=== PATIENT | female | born 1980 | race Hispanic/Latino ===

== ENCOUNTER 2020-07-26 10:38 | Inpatient (IN) | payer SELFPAY ==
[~2020-07-26 10:38] MED LIST: Iopamidol 370 76% 100 ML VIAL ONE
[2020-07-26 11:11] LABS: #Eosinphils 0.1 thou/uL (0.0-0.7); #Lymphocytes 1.4 thou/uL (1.20-3.40); #Monocytes 0.8 thou/uL (0.11-0.59); #Neutrophils 9.4 thou/uL (1.40-6.50); %Basophils 0.3 % (0.0-1.0); %Lymphocytes 12.1 % (21.0-51.0); %Monocytes 6.8 % (0.0-10.0); %Neutrophils 79.8 % (42.0-75.0); Hemoglobin 14.3 g/dL (12.0-16.0); Mean Corpuscular HGB CONC 33.7 g/dL (32.0-36.0); Mean Corpuscular Hemoglobin 33.1 pg (27.0-31.0); Mean Platelet Volume 6.8 fL (7.4-10.4); Platelet Count 330 thou/uL (130-400); RBC Distribution Width 12.3 % (11.5-14.5); Red Blood Cell (RBC) Count 4.33 mill/uL (4.20-5.40); White Blood Cell (WBC) Count 11.8 thou/uL (4.8-10.8)
[2020-07-26] MEDS ORDERED: Ondansetron PF 4 MG/2 ML Vial ONE (11:20)
[2020-07-26] MEDS ORDERED: Morphine 4 MG/ML VIAL ONE ×2 (11:20→13:13)
[2020-07-26 11:34] LABS: Bilirubin Negative (Negative); Blood, Urine 1+ (Negative); Clarity Clear (Clear); Glucose, Urine (Dipstick) Normal (Negative); Ketone, Urine Negative (Negative); Leukocyte Negative Leu/uL (Negative); Nitrite Negative (Negative); Protein, Urine (Dipstick) Negative (Neg-Trace); RBC/HPF 0-3 HPF (0-3); Specific Gravity, Urine 1.009 (1.002-1.036); Urobilinogen Normal mg/dL (Less than 2); WBC/HPF 0-3 HPF (0-3)
[2020-07-26 11:37] LABS: Bacteria/HPF Rare-Few HPF (None Seen)
[2020-07-26] MEDS ORDERED: Piperacillin/Tazobactam 4.5 GM VIAL ONE (11:43)
[2020-07-26 12:01] LABS: Albumin 4.3 g/dL (3.5-5.0)
[2020-07-26 12:02] LABS: Chloride 104 mmol/L (98-107); Potassium 4.4 mmol/L (3.5-5.1); Sodium 136 mmol/L (136-145)
[2020-07-26 12:03] LABS: Glucose 88 mg/dL (70-105)
[2020-07-26 12:04] LABS: Globulin 4.1 g/dL (2.4-3.5); Protein, Total 8.4 g/dL (6.0-8.3)
[2020-07-26 12:05] LABS: Anion Gap 18 mmol/L (10-20); Bilirubin, Total 0.9 mg/dL (0.2-1.2); Carbon Dioxide 18 mmol/L (22-29)
[2020-07-26 12:06] LABS: Alkaline Phosphatase 95 U/L (40-110)
[2020-07-26 12:07] LABS: BUN (Urea Nitrogen) 11 mg/dL (7.0-18.7); Calc. Creatinine Clearance 0 mL/min (70-130)
[2020-07-26 12:08] LABS: AST (SGOT) 30 U/L (5-34)
[2020-07-26 12:09] LABS: ALT (SGPT) 17 U/L (8-55); Lipase 35 U/L (8-78)
[2020-07-26] MEDS ORDERED: Ketorolac Tromethamine 30 MG/ML VIAL ONE (13:13)
[2020-07-26] MEDS ORDERED: Lorazepam 2 MG/ML VIAL SLOW IVP PRN (15:04)
[2020-07-26] MEDS ORDERED: Ondansetron ODT 4 MG TAB PO PRN (15:04)
[2020-07-26] MEDS ORDERED: hydrALAZINE 20 MG/ML VIAL SLOW IVP PRN (15:04)
[2020-07-26] MEDS ORDERED: Ondansetron PF 4 MG/2 ML Vial IVP PRN (15:04)
[2020-07-26] MEDS ORDERED: Morphine 4 MG/ML VIAL SLOW IVP PRN (16:50)
[2020-07-26] MEDS: Morphine 4 MG/ML VIAL SLOW IVP PRN ×4 (16:59→23:36)
[2020-07-26] MEDS: Piperacillin/Tazobactam 4.5 GM in Sodium Chloride 0.9% 100 ML IVPB SCH ×2 (17:00→23:35)
[2020-07-26] MEDS: Lactated Ringer's 1,000 ML IV SCH ×2 (17:00→20:33)
[2020-07-26 17:58] VITALS: BMI 25.9
[2020-07-26] MEDS: Enoxaparin Sodium 40 MG/0.4 ML SYRINGE SC SCH (20:32)
[2020-07-26] MEDS: Ketorolac Tromethamine 30 MG/ML VIAL IVP PRN (21:56)
[2020-07-27 01:15] LABS: SARS-CoV-2 PCR by NAA Not Detected (NotDetected)
[2020-07-27] MEDS: Morphine 4 MG/ML VIAL SLOW IVP PRN ×5 (03:23→20:08)
[2020-07-27] MEDS: Ketorolac Tromethamine 30 MG/ML VIAL IVP PRN ×2 (04:40→18:02)
[2020-07-27] MEDS: Piperacillin/Tazobactam 4.5 GM in Sodium Chloride 0.9% 100 ML IVPB SCH ×3 (05:46→18:02)
[2020-07-27 07:15] LABS: #Eosinphils 0.1 thou/uL (0.0-0.7); #Lymphocytes 1.3 thou/uL (1.20-3.40); #Monocytes 0.7 thou/uL (0.11-0.59); #Neutrophils 5.8 thou/uL (1.40-6.50); %Eosinophils 0.7 % (0.0-10.0); %Lymphocytes 16.5 % (21.0-51.0); %Monocytes 8.4 % (0.0-10.0); %Neutrophils 74.4 % (42.0-75.0); Mean Corpuscular HGB CONC 32.3 g/dL (32.0-36.0); Mean Corpuscular Hemoglobin 31.7 pg (27.0-31.0); Mean Platelet Volume 6.8 fL (7.4-10.4); Platelet Count 264 thou/uL (130-400); RBC Distribution Width 12.4 % (11.5-14.5); Red Blood Cell (RBC) Count 3.48 mill/uL (4.20-5.40); White Blood Cell (WBC) Count 7.8 thou/uL (4.8-10.8)
[2020-07-27 07:21] LABS: Anion Gap 10 mmol/L (10-20); BUN (Urea Nitrogen) 11 mg/dL (7.0-18.7); Calc. Creatinine Clearance 109 mL/min (70-130); Carbon Dioxide 21 mmol/L (22-29); Chloride 108 mmol/L (98-107); Glucose 73 mg/dL (70-105); Potassium 3.3 mmol/L (3.5-5.1); Sodium 136 mmol/L (136-145)
[2020-07-27] MEDS: Pantoprazole 40 MG VIAL IVP SCH (08:40)
[2020-07-27] MEDS: Lactated Ringer's 1,000 ML IV SCH ×2 (08:45→18:06)
[2020-07-27] MEDS: Enoxaparin Sodium 40 MG/0.4 ML SYRINGE SC SCH (20:07)
[2020-07-28] MEDS: Piperacillin/Tazobactam 4.5 GM in Sodium Chloride 0.9% 100 ML IVPB SCH ×3 (00:15→11:21)
[2020-07-28] MEDS: Ketorolac Tromethamine 30 MG/ML VIAL IVP PRN (00:20)
[2020-07-28] MEDS: Lactated Ringer's 1,000 ML IV SCH ×3 (00:23→12:06)
[2020-07-28] MEDS: Morphine 4 MG/ML VIAL SLOW IVP PRN (05:44)
[2020-07-28] MEDS: Pantoprazole 40 MG VIAL IVP SCH (08:12)
[2020-07-28 16:16] VITALS: BP 150/86; TEMP 98.1
[2020-07-28] MEDS ORDERED: Amoxicillin/Potassium Clav 500 MG TAB PO SCH (21:00)
== END 2020-07-28 16:58 | disposition home or self-care (01) | DRG 392 ==
LOC: ERS 10:38 → T4-A 13:23
PROVIDERS: ADMIT Specialist; ATTEND Specialist
DX: K57.20 Diverticulitis of large intestine with perforation and abscess without bleeding (principal); F17.210 Nicotine dependence, cigarettes, uncomplicated; Z90.49 Acquired absence of other specified parts of digestive tract; I10 Essential (primary) hypertension; Z90.710 Acquired absence of both cervix and uterus; Z90.79 Acquired absence of other genital organ(s); Z90.722 Acquired absence of ovaries, bilateral
CPT/HCPCS: 36415; 74177; 80048; 80053; 81003; 81015; 83690; 85025; 87635; 90471; 90732; 96365; 96366; 96375; 96376; C9113; G0009; J1650; J1885; J2270; J2405; J2543; J3490; Q9967; U0003; U0005

== ENCOUNTER 2020-12-28 14:04 | Inpatient (IN) | payer SELFPAY ==
[~2020-12-28 14:04] MED LIST changes: -Iopamidol 370 76% 100 ML VIAL ONE; +Iopamidol-370 76% 500 ML 1 ML ONE
[2020-12-28 14:37] LABS: Bacteria/HPF None Seen HPF (None Seen); Bilirubin Negative (Negative); Blood, Urine Trace (Negative); Clarity Clear (Clear); Glucose, Urine (Dipstick) Normal (Negative); Ketone, Urine Negative (Negative); Leukocyte Negative Leu/uL (Negative); Nitrite Negative (Negative); Protein, Urine (Dipstick) Negative (Neg-Trace); Squamous Epithelial 0-3 HPF (0-3); Urobilinogen Normal mg/dL (Less than 2); WBC/HPF 0-3 HPF (0-3); pH, Urine 6.5 (5.0-9.0)
[2020-12-28 15:25] LABS: #Eosinphils 0.1 thou/uL (0.0-0.7); #Lymphocytes 1.7 thou/uL (1.20-3.40); #Monocytes 0.6 thou/uL (0.11-0.59); #Neutrophils 6.2 thou/uL (1.40-6.50); %Basophils 0.5 % (0.0-1.0); %Eosinophils 1.7 % (0.0-10.0); %Lymphocytes 19.5 % (21.0-51.0); %Monocytes 7.3 % (0.0-10.0); %Neutrophils 71.1 % (42.0-75.0); Hemoglobin 13.3 g/dL (12.0-16.0); Mean Corpuscular HGB CONC 35.4 g/dL (32.0-36.0); Mean Corpuscular Hemoglobin 34.3 pg (27.0-31.0); Mean Corpuscular Volume 96.9 fL (78.0-98.0); Mean Platelet Volume 6.9 fL (7.4-10.4); Platelet Count 290 thou/uL (130-400); Red Blood Cell (RBC) Count 3.86 mill/uL (4.20-5.40); White Blood Cell (WBC) Count 8.7 thou/uL (4.8-10.8)
[2020-12-28 15:29] LABS: BHCG - Serum Negative (NEGATIVE); Pregs Control Background? CLEAR/WHITE (CLR/WHITE); Pregs Control Bar Appear? YES (CONTROL BAR)
[2020-12-28 15:38] LABS: ALT (SGPT) 31 U/L (8-55); AST (SGOT) 34 U/L (5-34); Alkaline Phosphatase 98 U/L (40-110); Anion Gap 10 mmol/L (10-20); BUN (Urea Nitrogen) 12 mg/dL (7.0-18.7); Bilirubin, Total 0.4 mg/dL (0.2-1.2); Calc. Creatinine Clearance 0 mL/min (70-130); Calcium 8.6 mg/dL (7.8-10.44); Carbon Dioxide 22 mmol/L (22-29); Chloride 113 mmol/L (98-107); Globulin 3.2 g/dL (2.4-3.5); Glucose 82 mg/dL (70-105); Potassium 3.9 mmol/L (3.5-5.1); Protein, Total 7.2 g/dL (6.0-8.3); Sodium 141 mmol/L (136-145)
[2020-12-28] MEDS ORDERED: Morphine 4 MG/ML VIAL ONE ×2 (15:57→22:47)
[2020-12-28] MEDS ORDERED: Ondansetron PF 4 MG/2 ML Vial ONE (16:04)
[2020-12-28] MEDS ORDERED: Piperacillin/Tazobactam 3.375 GM VIAL ONE (17:24)
[2020-12-28] MEDS ORDERED: Ondansetron ODT 4 MG TAB PO PRN (19:30)
[2020-12-28] MEDS ORDERED: Ondansetron PF 4 MG/2 ML Vial IVP PRN ×3 (19:31→23:06)
[2020-12-28 22:55] VITALS: BMI 30.4
[2020-12-28] MEDS ORDERED: Morphine 4 MG/ML VIAL SLOW IVP PRN (23:07)
[2020-12-28] MEDS ORDERED: Sodium Chloride 0.9% 1,000 ML IV SCH (23:15)
[2020-12-28] MEDS ORDERED: FLU VACC QS2021-22(6MOS UP)/PF 60 MCG/0.5 ML SYRINGE IM ONE (23:30)
[2020-12-28] MEDS: Piperacillin/Tazobactam 3.375 GM in Sodium Chloride 0.9% 100 ML IVPB SCH (23:59)
[2020-12-29] MEDS: Morphine 4 MG/ML VIAL SLOW IVP PRN ×6 (03:22→20:35)
[2020-12-29] MEDS ORDERED: Piperacillin/Tazobactam 3.375 GM in Sodium Chloride 0.9% 100 ML IVPB SCH (09:00)
[2020-12-29] MEDS: Piperacillin/Tazobactam 3.375 GM in Sodium Chloride 0.9% 100 ML IVPB SCH (09:14)
[2020-12-29] MEDS: 1/2 NS w/KCL 20 mEq 1,000 ML IV SCH ×2 (11:16→20:38)
[2020-12-29] MEDS: Piperacillin/Tazobactam 4.5 GM in Sodium Chloride 0.9% 100 ML IVPB SCH ×2 (11:16→18:33)
[2020-12-29] MEDS: Acetaminophen 500 MG TAB PO PRN ×2 (11:16→17:46)
[2020-12-29 12:02] LABS: SARS-CoV-2 PCR by NAA Not Detected (NotDetected)
[2020-12-29] MEDS ORDERED: Magnesium Citrate 300 ML BOT PO SCH ×2 (15:15→20:00)
[2020-12-29] MEDS ORDERED: Ondansetron PF 4 MG/2 ML Vial IVP PRN (17:47)
[2020-12-29] MEDS ORDERED: Ondansetron ORAL SOLN. 4 MG/5 ML UDCUP PO PRN (17:47)
[2020-12-29] MEDS ORDERED: Ondansetron ODT 8 MG TAB SL PRN (17:47)
[2020-12-29] MEDS: Enoxaparin Sodium 40 MG/0.4 ML SYRINGE SC SCH (20:17)
[2020-12-30] MEDS: Acetaminophen 500 MG TAB PO PRN ×2 (00:23→16:54)
[2020-12-30] MEDS: Morphine 4 MG/ML VIAL SLOW IVP PRN ×3 (01:11→19:56)
[2020-12-30] MEDS: Piperacillin/Tazobactam 4.5 GM in Sodium Chloride 0.9% 100 ML IVPB SCH ×3 (02:43→18:18)
[2020-12-30] MEDS: 1/2 NS w/KCL 20 mEq 1,000 ML IV SCH ×4 (07:06→23:23)
[2020-12-30] MEDS ORDERED: Midazolam HCl 2 mg/2 ml Vial ONE (08:43)
[2020-12-30] MEDS ORDERED: Fentanyl 100 MCG/2 ML VIAL ONE (08:44)
[2020-12-30] MEDS ORDERED: Hydrochlorothiazide 25 MG TAB PO SCH (09:00)
[2020-12-30] MEDS: Lisinopril 20 MG TAB PO SCH (09:46)
[2020-12-30] MEDS: Pantoprazole 40 MG VIAL IVP SCH (09:47)
[2020-12-30] MEDS ORDERED: Gabapentin 300 MG CAP ONE (09:48)
[2020-12-30] MEDS ORDERED: Acetaminophen 500 MG TAB ONE (09:48)
[2020-12-30] MEDS ORDERED: Ketorolac Tromethamine 30 MG/ML VIAL ONE (09:48)
[2020-12-30] MEDS ORDERED: Fentanyl 250 MCG/5 ML VIAL ONE (11:17)
[2020-12-30] MEDS ORDERED: Lidocaine 2% Jelly 5 ML TUBE ONE (11:17)
[2020-12-30] MEDS ORDERED: Sodium Chloride 0.9% 30 ML ONE (11:19)
[2020-12-30] MEDS ORDERED: ceFOXitin 1 GM VIAL ONE (11:52)
[2020-12-30] MEDS ORDERED: Glycopyrrolate 0.2 MG/ML 5 ML SYRINGE ONE (12:03)
[2020-12-30] MEDS ORDERED: PROPOFOL 200 MG/20 ML VIAL ONE (12:03)
[2020-12-30] MEDS ORDERED: PHENYLEPHRINE-NS 100 MCG/ML 10 ML SYRINGE ONE (12:03)
[2020-12-30] MEDS ORDERED: Dexamethasone 20 MG/5 ML VIAL ONE (12:03)
[2020-12-30] MEDS ORDERED: ePHEDrine 50 MG/ML VIAL ONE (12:03)
[2020-12-30] MEDS ORDERED: Labetalol HCl 100 MG/20 ML VIAL ONE (12:03)
[2020-12-30] MEDS ORDERED: Rocuronium Bromide 10 MG/ML (10ML VIAL) ONE (12:03)
[2020-12-30] MEDS ORDERED: Bupivacaine HCl 0.5%/Epinephrine 1:200,000/PF 30 ml Vial ONE (12:36)
[2020-12-30] MEDS ORDERED: HYDROmorphone 2 MG/ML VIAL SLOW IVP PRN (12:47)
[2020-12-30] MEDS ORDERED: Ondansetron HCl/PF 4 MG/2 ML Vial IVP PRN (12:47)
[2020-12-30] MEDS ORDERED: Promethazine HCl 25 MG/ML VIAL IM PRN (12:47)
[2020-12-30] MEDS ORDERED: Promethazine HCl 25 MG/ML VIAL IVPB PRN (12:47)
[2020-12-30] MEDS: Gabapentin 300 MG CAP PO SCH ×2 (16:53→20:01)
[2020-12-30] MEDS: Ketorolac Tromethamine 30 MG/ML VIAL IVP SCH ×2 (18:18→23:22)
[2020-12-30] MEDS: Enoxaparin Sodium 40 MG/0.4 ML SYRINGE SC SCH (20:01)
[2020-12-31] MEDS: Morphine 4 MG/ML VIAL SLOW IVP PRN ×2 (01:59→08:15)
[2020-12-31] MEDS: Piperacillin/Tazobactam 4.5 GM in Sodium Chloride 0.9% 100 ML IVPB SCH ×3 (02:10→18:12)
[2020-12-31 05:12] LABS: #Lymphocytes 1.1 thou/uL (1.20-3.40); #Monocytes 0.6 thou/uL (0.11-0.59); #Neutrophils 8.6 thou/uL (1.40-6.50); %Basophils 0.1 % (0.0-1.0); %Eosinophils 0.1 % (0.0-10.0); %Lymphocytes 10.8 % (21.0-51.0); %Neutrophils 82.9 % (42.0-75.0); Hemoglobin 9.5 g/dL (12.0-16.0); Mean Corpuscular HGB CONC 36.2 g/dL (32.0-36.0); Mean Corpuscular Hemoglobin 35.1 pg (27.0-31.0); Mean Corpuscular Volume 97.1 fL (78.0-98.0); Platelet Count 242 thou/uL (130-400); RBC Distribution Width 11.7 % (11.5-14.5); White Blood Cell (WBC) Count 10.3 thou/uL (4.8-10.8)
[2020-12-31 05:33] LABS: Phosphorus 2.8 mg/dL (2.3-4.7)
[2020-12-31] MEDS: Ketorolac Tromethamine 30 MG/ML VIAL IVP SCH ×4 (05:43→23:57)
[2020-12-31 05:56] LABS: ALT (SGPT) 67 U/L (8-55); AST (SGOT) 55 U/L (5-34); Alkaline Phosphatase 112 U/L (40-110); Anion Gap 13 mmol/L (10-20); BUN (Urea Nitrogen) 7 mg/dL (7.0-18.7); Bilirubin, Total 0.9 mg/dL (0.2-1.2); Calc. Creatinine Clearance 126 mL/min (70-130); Calcium 7.9 mg/dL (7.8-10.44); Carbon Dioxide 19 mmol/L (22-29); Chloride 107 mmol/L (98-107); Globulin 3.1 g/dL (2.4-3.5); Glucose 96 mg/dL (70-105); Magnesium 1.9 mg/dL (1.6-2.6); Potassium 4.3 mmol/L (3.5-5.1); Protein, Total 6.1 g/dL (6.0-8.3); Sodium 135 mmol/L (136-145)
[2020-12-31] MEDS: Pantoprazole 40 MG VIAL IVP SCH (08:15)
[2020-12-31] MEDS: Gabapentin 300 MG CAP PO SCH ×3 (08:21→20:03)
[2020-12-31] MEDS: Lisinopril 20 MG TAB PO SCH (08:22)
[2020-12-31] MEDS: 1/2 NS w/KCL 20 mEq 1,000 ML IV SCH ×2 (08:34→17:21)
[2020-12-31] MEDS: Acetaminophen 500 MG TAB PO SCH ×3 (12:24→23:59)
[2020-12-31] MEDS: traMADol HCl 50 MG TAB PO SCH ×3 (12:25→23:57)
[2020-12-31] MEDS: Enoxaparin Sodium 40 MG/0.4 ML SYRINGE SC SCH (20:04)
[2020-12-31] MEDS ORDERED: FLU VACC QS2021-22(6MOS UP)/PF 60 MCG/0.5 ML SYRINGE IM ONE (21:00)
[2021-01-01] MEDS: Piperacillin/Tazobactam 4.5 GM in Sodium Chloride 0.9% 100 ML IVPB SCH ×3 (02:07→17:50)
[2021-01-01] MEDS: 1/2 NS w/KCL 20 mEq 1,000 ML IV SCH ×2 (02:13→09:15)
[2021-01-01] MEDS: Ketorolac Tromethamine 30 MG/ML VIAL IVP SCH ×3 (05:32→17:53)
[2021-01-01] MEDS: Acetaminophen 500 MG TAB PO SCH ×3 (05:33→17:51)
[2021-01-01] MEDS: traMADol HCl 50 MG TAB PO SCH ×3 (06:03→17:53)
[2021-01-01] MEDS: Pantoprazole 40 MG VIAL IVP SCH (09:14)
[2021-01-01] MEDS: traMADol HCl 50 MG TAB PO PRN (09:14)
[2021-01-01] MEDS: Gabapentin 300 MG CAP PO SCH ×3 (09:15→20:38)
[2021-01-01] MEDS: Lisinopril 20 MG TAB PO SCH (09:17)
[2021-01-01] MEDS: Enoxaparin Sodium 40 MG/0.4 ML SYRINGE SC SCH (20:38)
[2021-01-02] MEDS: Ketorolac Tromethamine 30 MG/ML VIAL IVP SCH ×5 (00:09→23:34)
[2021-01-02] MEDS: traMADol HCl 50 MG TAB PO SCH ×5 (00:09→23:35)
[2021-01-02] MEDS: Acetaminophen 500 MG TAB PO SCH ×5 (00:09→23:34)
[2021-01-02] MEDS: Piperacillin/Tazobactam 4.5 GM in Sodium Chloride 0.9% 100 ML IVPB SCH ×3 (02:15→18:03)
[2021-01-02 06:33] LABS: #Eosinphils 0.3 thou/uL (0.0-0.7); #Lymphocytes 1.4 thou/uL (1.20-3.40); #Monocytes 0.6 thou/uL (0.11-0.59); #Neutrophils 10.2 thou/uL (1.40-6.50); %Basophils 0.1 % (0.0-1.0); %Eosinophils 2.4 % (0.0-10.0); %Lymphocytes 11.1 % (21.0-51.0); %Monocytes 5.1 % (0.0-10.0); %Neutrophils 81.2 % (42.0-75.0); Hemoglobin 7.4 g/dL (12.0-16.0); Mean Corpuscular HGB CONC 34.6 g/dL (32.0-36.0); Mean Corpuscular Hemoglobin 34.5 pg (27.0-31.0); Mean Corpuscular Volume 99.7 fL (78.0-98.0); Mean Platelet Volume 7.3 fL (7.4-10.4); Platelet Count 203 thou/uL (130-400); RBC Distribution Width 11.9 % (11.5-14.5); Red Blood Cell (RBC) Count 2.15 mill/uL (4.20-5.40); White Blood Cell (WBC) Count 12.6 thou/uL (4.8-10.8)
[2021-01-02 06:54] LABS: Anion Gap 9 mmol/L (10-20); BUN (Urea Nitrogen) 13 mg/dL (7.0-18.7); Calc. Creatinine Clearance 134 mL/min (70-130); Calcium 7.8 mg/dL (7.8-10.44); Carbon Dioxide 22 mmol/L (22-29); Chloride 111 mmol/L (98-107); Glucose 81 mg/dL (70-105); Phosphorus 2.8 mg/dL (2.3-4.7); Potassium 3.6 mmol/L (3.5-5.1); Sodium 138 mmol/L (136-145)
[2021-01-02] MEDS: Gabapentin 300 MG CAP PO SCH ×3 (09:06→20:24)
[2021-01-02] MEDS: traMADol HCl 50 MG TAB PO PRN (10:11)
[2021-01-02] MEDS: Lisinopril 20 MG TAB PO SCH (10:15)
[2021-01-02] MEDS: Enoxaparin Sodium 40 MG/0.4 ML SYRINGE SC SCH (20:23)
[2021-01-03] MEDS: Piperacillin/Tazobactam 4.5 GM in Sodium Chloride 0.9% 100 ML IVPB SCH ×2 (02:08→09:19)
[2021-01-03 03:46] LABS: #Eosinphils 0.3 thou/uL (0.0-0.7); #Lymphocytes 1.3 thou/uL (1.20-3.40); #Monocytes 0.5 thou/uL (0.11-0.59); #Neutrophils 7.2 thou/uL (1.40-6.50); %Basophils 0.1 % (0.0-1.0); %Eosinophils 3.3 % (0.0-10.0); %Lymphocytes 13.9 % (21.0-51.0); %Monocytes 5.1 % (0.0-10.0); %Neutrophils 77.6 % (42.0-75.0); Hemoglobin 7.5 g/dL (12.0-16.0); Mean Corpuscular HGB CONC 34.3 g/dL (32.0-36.0); Mean Corpuscular Hemoglobin 34.2 pg (27.0-31.0); Mean Corpuscular Volume 99.7 fL (78.0-98.0); Mean Platelet Volume 7.6 fL (7.4-10.4); Platelet Count 223 thou/uL (130-400); RBC Distribution Width 11.8 % (11.5-14.5); Red Blood Cell (RBC) Count 2.18 mill/uL (4.20-5.40); White Blood Cell (WBC) Count 9.3 thou/uL (4.8-10.8)
[2021-01-03 04:18] LABS: Anion Gap 13 mmol/L (10-20); BUN (Urea Nitrogen) 10 mg/dL (7.0-18.7); Calc. Creatinine Clearance 116 mL/min (70-130); Calcium 7.9 mg/dL (7.8-10.44); Carbon Dioxide 21 mmol/L (22-29); Chloride 109 mmol/L (98-107); Glucose 106 mg/dL (70-105); Potassium 3.4 mmol/L (3.5-5.1); Sodium 140 mmol/L (136-145)
[2021-01-03] MEDS: Ketorolac Tromethamine 30 MG/ML VIAL IVP SCH ×2 (05:01→11:04)
[2021-01-03] MEDS: traMADol HCl 50 MG TAB PO SCH ×2 (05:06→11:05)
[2021-01-03] MEDS: Acetaminophen 500 MG TAB PO SCH ×2 (05:06→11:05)
[2021-01-03] MEDS: Lisinopril 20 MG TAB PO SCH (09:17)
[2021-01-03] MEDS: Gabapentin 300 MG CAP PO SCH ×2 (09:18→15:01)
[2021-01-03] MEDS: traMADol HCl 50 MG TAB PO PRN (15:02)
[2021-01-03 15:40] VITALS: BP 130/79; TEMP 98
== END 2021-01-03 17:16 | disposition home or self-care (01) | DRG 330 ==
LOC: ERS 14:04 → SURG A 17:31 → ERS 19:52
PROVIDERS: ADMIT Specialist; ATTEND Specialist
PROC: 0DTN0ZZ Resection of Sigmoid Colon, Open Approach (ICD-10-PCS; principal; 2020-12-30)
PROC: 0DBM0ZZ Excision of Descending Colon, Open Approach (ICD-10-PCS; 2020-12-30)
PROC: 0D1M0Z4 Bypass Descending Colon to Cutaneous, Open Approach (ICD-10-PCS; 2020-12-30)
PROC: 0FT44ZZ Resection of Gallbladder, Percutaneous Endoscopic Approach (ICD-10-PCS; 2020-12-30)
PROC: 02HV33Z Insertion of Infusion Device into Superior Vena Cava, Percutaneous Approach (ICD-10-PCS; 2020-12-30)
PROC: 3E0T3BZ Introduction of Anesthetic Agent into Peripheral Nerves and Plexi, Percutaneous Approach (ICD-10-PCS; 2020-12-30)
DX: K57.20 Diverticulitis of large intestine with perforation and abscess without bleeding (principal); K80.10 Calculus of gallbladder with chronic cholecystitis without obstruction; I10 Essential (primary) hypertension; E66.9 Obesity, unspecified; F17.210 Nicotine dependence, cigarettes, uncomplicated; Z20.822 Contact with and (suspected) exposure to COVID-19; Z90.49 Acquired absence of other specified parts of digestive tract; Z90.710 Acquired absence of both cervix and uterus; Z90.722 Acquired absence of ovaries, bilateral; Z68.30 Body mass index [BMI] 30.0-30.9, adult; D64.9 Anemia, unspecified
CPT/HCPCS: 36415; 36416; 71045; 74177; 76856; 80048; 80053; 81003; 81015; 83690; 83735; 84100; 84703; 85025; 88304; 88307; 90471; 90686; 96365; 96375; C9113; G0008; J0694; J1100; J1650; J1885; J2250; J2270; J2405; J2543; J2704; J3010; J3480; J3490; J7050; Q9967; U0003; U0005

== ENCOUNTER 2021-01-05 12:17 | Inpatient (IN) | payer SELFPAY ==
[2021-01-05] MEDS ORDERED: Morphine 4 MG/ML VIAL ONE ×2 (12:54→16:20)
[2021-01-05 12:59] LABS: #Eosinphils 0.3 thou/uL (0.0-0.7); #Lymphocytes 1.4 thou/uL (1.20-3.40); #Monocytes 0.9 thou/uL (0.11-0.59); %Basophils 0.1 % (0.0-1.0); %Eosinophils 1.8 % (0.0-10.0); %Lymphocytes 9.2 % (21.0-51.0); %Monocytes 5.7 % (0.0-10.0); %Neutrophils 83.3 % (42.0-75.0); Hemoglobin 11.3 g/dL (12.0-16.0); Mean Corpuscular HGB CONC 34.3 g/dL (32.0-36.0); Mean Corpuscular Hemoglobin 33.8 pg (27.0-31.0); Mean Corpuscular Volume 98.7 fL (78.0-98.0); Mean Platelet Volume 6.6 fL (7.4-10.4); Platelet Count 494 thou/uL (130-400); RBC Distribution Width 12.2 % (11.5-14.5); Red Blood Cell (RBC) Count 3.34 mill/uL (4.20-5.40); White Blood Cell (WBC) Count 15.6 thou/uL (4.8-10.8)
[2021-01-05] MEDS ORDERED: Ondansetron PF 4 MG/2 ML Vial ONE (13:00)
[2021-01-05] MEDS ORDERED: Promethazine HCl 25 MG/ML VIAL ONE (13:01)
[2021-01-05 13:21] LABS: ALT (SGPT) 22 U/L (8-55); AST (SGOT) 12 U/L (5-34); Albumin 3.5 g/dL (3.5-5.0); Alkaline Phosphatase 164 U/L (40-110); Anion Gap 16 mmol/L (10-20); BUN (Urea Nitrogen) 13 mg/dL (7.0-18.7); Bilirubin, Total 0.5 mg/dL (0.2-1.2); CRP (Inflammatory) 18.96 mg/dL (= or < 0.5); Calc. Creatinine Clearance 0 mL/min (70-130); Calcium 9.1 mg/dL (7.8-10.44); Carbon Dioxide 24 mmol/L (22-29); Chloride 103 mmol/L (98-107); Globulin 3.3 g/dL (2.4-3.5); Glucose 104 mg/dL (70-105); Magnesium 2.1 mg/dL (1.6-2.6); Potassium 3.5 mmol/L (3.5-5.1); Protein, Total 6.8 g/dL (6.0-8.3); Sodium 139 mmol/L (136-145)
[2021-01-05 14:29] LABS: Bilirubin 1+ (Negative); Blood, Urine 1+ (Negative); Clarity Turbid (Clear); Glucose, Urine (Dipstick) Normal (Negative); Ketone, Urine 80 mg/dL (Negative); Leukocyte 75 Leu/uL (Negative); Nitrite Negative (Negative); Protein, Urine (Dipstick) 70 mg/dL (Neg-Trace); RBC/HPF 0-3 HPF (0-3); Specific Gravity, Urine 1.045 (1.002-1.036); Urobilinogen Normal mg/dL (Less than 2)
[2021-01-05 14:31] LABS: Pregnancy Test - Urine (BHCG) Negative (Negative); Pregu Control Background? CLEAR/WHITE (CLR/WHITE); Pregu Control Bar Appear? YES (CONTROL BAR); Specific Gravity 1.045 (1.002-1.036)
[2021-01-05 14:31] LABS: Bacteria/HPF 1+ HPF (None Seen)
[2021-01-05] MEDS ORDERED: Benzocaine 20% Spray 60 ML CAN ONE (14:38)
[2021-01-05] MEDS ORDERED: Piperacillin/Tazobactam 3.375 GM VIAL ONE (16:01)
[2021-01-05] MEDS ORDERED: hydrALAZINE 20 MG/ML VIAL SLOW IVP PRN (17:45)
[2021-01-05] MEDS ORDERED: Ondansetron ODT 4 MG TAB PO PRN (17:45)
[2021-01-05] MEDS ORDERED: Promethazine HCl 25 MG/ML VIAL IM PRN (17:45)
[2021-01-05] MEDS ORDERED: Lactated Ringer's 1,000 ML IV SCH (18:00)
[2021-01-05] MEDS: Morphine 4 MG/ML VIAL SLOW IVP PRN (20:58)
[2021-01-05] MEDS: Lactated Ringer's 1,000 ML IV SCH ×2 (20:59→22:46)
[2021-01-05] MEDS: Enoxaparin Sodium 40 MG/0.4 ML SYRINGE SC SCH (21:00)
[2021-01-05] MEDS: Famotidine/PF 20 mg/2ml Vial SLOW IVP SCH (22:45)
[2021-01-06] MEDS: Morphine 4 MG/ML VIAL SLOW IVP PRN ×6 (02:25→21:13)
[2021-01-06] MEDS: Lactated Ringer's 1,000 ML IV SCH ×4 (04:26→21:13)
[2021-01-06 06:46] LABS: Hemoglobin 9.3 g/dL (12.0-16.0); Hypochromia SLIGHT = 6-15 cells (100X) (0-5/hpf); Lymphocytes 23 % (21-51); MDiff Complete? YES; Mean Corpuscular HGB CONC 32.5 g/dL (32.0-36.0); Mean Corpuscular Hemoglobin 32.2 pg (27.0-31.0); Mean Platelet Volume 6.7 fL (7.4-10.4); Monocytes 8 % (0-10); Neutrophil 69 % (42-75); Nucleated RBC 1 % (0); Platelet Count 462 thou/uL (130-400); Platelet Morphology Comment Appears Increased; RBC Distribution Width 12.3 % (11.5-14.5); Red Blood Cell (RBC) Count 2.88 mill/uL (4.20-5.40); White Blood Cell (WBC) Count 12.2 thou/uL (4.8-10.8)
[2021-01-06 06:50] LABS: Anion Gap 14 mmol/L (10-20); BUN (Urea Nitrogen) 10 mg/dL (7.0-18.7); Calc. Creatinine Clearance 126 mL/min (70-130); Calcium 8.2 mg/dL (7.8-10.44); Carbon Dioxide 23 mmol/L (22-29); Chloride 104 mmol/L (98-107); Glucose 83 mg/dL (70-105); Potassium 3.9 mmol/L (3.5-5.1); Sodium 137 mmol/L (136-145)
[2021-01-06] MEDS: Famotidine/PF 20 mg/2ml Vial SLOW IVP SCH ×2 (08:29→21:13)
[2021-01-06] MEDS: Lisinopril/Hydrochlorothiazide 20 mg/12.5 mg Tablet PO SCH (08:29)
[2021-01-06 12:19] LABS: SARS-CoV-2 PCR by NAA Not Detected (NotDetected)
[2021-01-06] MEDS: Enoxaparin Sodium 40 MG/0.4 ML SYRINGE SC SCH (21:13)
[2021-01-07] MEDS: Lactated Ringer's 1,000 ML IV SCH ×4 (06:22→23:00)
[2021-01-07] MEDS: Morphine 4 MG/ML VIAL SLOW IVP PRN ×4 (07:54→20:36)
[2021-01-07] MEDS: Famotidine/PF 20 mg/2ml Vial SLOW IVP SCH ×2 (07:55→20:38)
[2021-01-07] MEDS: Lisinopril/Hydrochlorothiazide 20 mg/12.5 mg Tablet PO SCH (07:56)
[2021-01-07] MEDS: Acetaminophen 325 MG TAB PO PRN ×2 (11:51→20:35)
[2021-01-07] MEDS: Enoxaparin Sodium 40 MG/0.4 ML SYRINGE SC SCH (20:37)
[2021-01-08] MEDS: Morphine 4 MG/ML VIAL SLOW IVP PRN ×5 (01:55→20:39)
[2021-01-08] MEDS: Lactated Ringer's 1,000 ML IV SCH ×3 (05:21→20:30)
[2021-01-08] MEDS: Lisinopril/Hydrochlorothiazide 20 mg/12.5 mg Tablet PO SCH (09:31)
[2021-01-08] MEDS: Famotidine/PF 20 mg/2ml Vial SLOW IVP SCH ×2 (09:31→20:38)
[2021-01-08] MEDS ORDERED: Acetaminophen 500 MG TAB PO PRN (16:34)
[2021-01-08] MEDS ORDERED: HYDROcodone/Acetaminophen 5/325 mg Tablet PO PRN (16:34)
[2021-01-08] MEDS: Ibuprofen 600 MG TAB PO SCH (20:36)
[2021-01-08] MEDS: Enoxaparin Sodium 40 MG/0.4 ML SYRINGE SC SCH (20:37)
[2021-01-09] MEDS: HYDROcodone/Acetaminophen 5/325 mg Tablet PO PRN ×2 (01:00→11:40)
[2021-01-09] MEDS ORDERED: Dextrose 50% Abboject 50 ML SYRINGE ONE (02:43)
[2021-01-09] MEDS: Morphine 4 MG/ML VIAL SLOW IVP PRN (05:44)
[2021-01-09 07:14] LABS: #Eosinphils 0.2 thou/uL (0.0-0.7); #Lymphocytes 0.5 thou/uL (1.20-3.40); #Monocytes 0.5 thou/uL (0.11-0.59); #Neutrophils 8.2 thou/uL (1.40-6.50); %Basophils 0.4 % (0.0-1.0); %Eosinophils 2.6 % (0.0-10.0); %Lymphocytes 5.2 % (21.0-51.0); %Monocytes 4.9 % (0.0-10.0); %Neutrophils 86.9 % (42.0-75.0); Hemoglobin 9.1 g/dL (12.0-16.0); Mean Corpuscular HGB CONC 35.3 g/dL (32.0-36.0); Mean Corpuscular Hemoglobin 33.8 pg (27.0-31.0); Mean Platelet Volume 6.9 fL (7.4-10.4); Platelet Count 502 thou/uL (130-400); RBC Distribution Width 12.4 % (11.5-14.5); Red Blood Cell (RBC) Count 2.68 mill/uL (4.20-5.40); White Blood Cell (WBC) Count 9.4 thou/uL (4.8-10.8)
[2021-01-09] MEDS: Famotidine/PF 20 mg/2ml Vial SLOW IVP SCH ×2 (08:37→21:06)
[2021-01-09] MEDS: Ibuprofen 600 MG TAB PO SCH ×2 (08:37→14:20)
[2021-01-09] MEDS: Polyethylene Glycol 3350 17 GM Packet PO SCH (08:38)
[2021-01-09] MEDS: Lisinopril/Hydrochlorothiazide 20 mg/12.5 mg Tablet PO SCH (08:41)
[2021-01-09] MEDS: Ondansetron PF 4 MG/2 ML Vial IVP PRN (16:53)
[2021-01-09 18:11] LABS: #Eosinphils 0.3 thou/uL (0.0-0.7); #Lymphocytes 0.9 thou/uL (1.20-3.40); #Monocytes 0.5 thou/uL (0.11-0.59); #Neutrophils 6.6 thou/uL (1.40-6.50); %Eosinophils 3.1 % (0.0-10.0); %Lymphocytes 10.3 % (21.0-51.0); %Monocytes 6.3 % (0.0-10.0); %Neutrophils 80.3 % (42.0-75.0); Hemoglobin 9.9 g/dL (12.0-16.0); Mean Corpuscular HGB CONC 33.6 g/dL (32.0-36.0); Mean Corpuscular Hemoglobin 32.8 pg (27.0-31.0); Mean Corpuscular Volume 97.6 fL (78.0-98.0); Mean Platelet Volume 6.5 fL (7.4-10.4); Platelet Count 581 thou/uL (130-400); RBC Distribution Width 12.8 % (11.5-14.5); Red Blood Cell (RBC) Count 3.03 mill/uL (4.20-5.40); White Blood Cell (WBC) Count 8.2 thou/uL (4.8-10.8)
[2021-01-09] MEDS ORDERED: Dextrose 5%-Lactated Ringers 1,000 ML IV SCH ×3 (18:30→19:30)
[2021-01-09 18:31] LABS: Lactic Acid 1.1 mmol/L (0.5-2.2)
[2021-01-09 18:36] LABS: ALT (SGPT) 21 U/L (8-55); AST (SGOT) 16 U/L (5-34); Albumin 3.2 g/dL (3.5-5.0); Alkaline Phosphatase 306 U/L (40-110); Anion Gap 15 mmol/L (10-20); BUN (Urea Nitrogen) 5 mg/dL (7.0-18.7); Bilirubin, Total 0.4 mg/dL (0.2-1.2); Calc. Creatinine Clearance 123 mL/min (70-130); Calcium 8.8 mg/dL (7.8-10.44); Carbon Dioxide 25 mmol/L (22-29); Chloride 104 mmol/L (98-107); Globulin 3.1 g/dL (2.4-3.5); Glucose 114 mg/dL (70-105); Potassium 3.1 mmol/L (3.5-5.1); Protein, Total 6.3 g/dL (6.0-8.3); Sodium 141 mmol/L (136-145)
[2021-01-09 19:23] LABS: Amphetamine Not Detected (NotDetected); Barbiturates Screen Not Detected (NotDetected); Benzodiazepine Screen Not Detected (NotDetected); Cocaine Metabolite Screen Not Detected (NotDetected); Methadone Not Detected (NotDetected); Methamphetamine Not Detected (NotDetected); Opiate Screen Detected (NotDetected); Oxycodone Screen Not Detected (NotDetected); Phencyclidine (PCP) Not Detected (NotDetected); THC/Cannabinoid Screen Not Detected (NotDetected); Tricyclic Screen Not Detected (NotDetected)
[2021-01-09] MEDS: Dextrose 5%-Lactated Ringers 1,000 ML IV SCH (19:53)
[2021-01-09] MEDS ORDERED: Potassium Chloride 40 MEQ in Sodium Chloride 0.9% 250 ML 250 ML IVPB SCH (20:00)
[2021-01-09] MEDS: Enoxaparin Sodium 40 MG/0.4 ML SYRINGE SC SCH (21:44)
[2021-01-10] MEDS: Lactated Ringer's 1,000 ML IV SCH ×2 (00:25→00:27)
[2021-01-10] MEDS: Ondansetron PF 4 MG/2 ML Vial IVP PRN ×2 (00:39→14:50)
[2021-01-10] MEDS: Dextrose 5%-Lactated Ringers 1,000 ML IV SCH ×4 (02:29→20:59)
[2021-01-10 04:04] LABS: #Eosinphils 0.2 thou/uL (0.0-0.7); #Lymphocytes 0.7 thou/uL (1.20-3.40); #Monocytes 0.4 thou/uL (0.11-0.59); #Neutrophils 7.1 thou/uL (1.40-6.50); %Basophils 0.1 % (0.0-1.0); %Lymphocytes 8.1 % (21.0-51.0); %Monocytes 5.3 % (0.0-10.0); %Neutrophils 84.5 % (42.0-75.0); Hemoglobin 10.6 g/dL (12.0-16.0); Mean Corpuscular HGB CONC 34.3 g/dL (32.0-36.0); Mean Corpuscular Hemoglobin 33.6 pg (27.0-31.0); Mean Corpuscular Volume 97.9 fL (78.0-98.0); Mean Platelet Volume 6.8 fL (7.4-10.4); Platelet Count 592 thou/uL (130-400); RBC Distribution Width 12.7 % (11.5-14.5); Red Blood Cell (RBC) Count 3.16 mill/uL (4.20-5.40); White Blood Cell (WBC) Count 8.4 thou/uL (4.8-10.8)
[2021-01-10 04:38] LABS: Anion Gap 14 mmol/L (10-20); BUN (Urea Nitrogen) 4 mg/dL (7.0-18.7); Calc. Creatinine Clearance 135 mL/min (70-130); Calcium 8.8 mg/dL (7.8-10.44); Carbon Dioxide 29 mmol/L (22-29); Chloride 104 mmol/L (98-107); Glucose 140 mg/dL (70-105); Potassium 3.5 mmol/L (3.5-5.1); Sodium 143 mmol/L (136-145)
[2021-01-10] MEDS: Polyethylene Glycol 3350 17 GM Packet PO SCH (08:46)
[2021-01-10] MEDS: Famotidine/PF 20 mg/2ml Vial SLOW IVP SCH ×2 (08:48→20:59)
[2021-01-10] MEDS: Lisinopril/Hydrochlorothiazide 20 mg/12.5 mg Tablet PO SCH (08:48)
[2021-01-10] MEDS ORDERED: Electrolyte Replacement Protocol 1 EACH FS SCH (10:45)
[2021-01-10] MEDS ORDERED: Electrolyte Replacement Protocol FS PRN (12:30)
[2021-01-10] MEDS ORDERED: Potassium Chloride 20 MEQ TAB PO SCH (13:00)
[2021-01-10] MEDS ORDERED: Acetaminophen 500 MG TAB PO PRN (14:55)
[2021-01-10] MEDS ORDERED: Ibuprofen 600 MG TAB PO PRN (14:55)
[2021-01-10] MEDS ORDERED: traMADol HCl 50 MG TAB PO PRN (14:55)
[2021-01-10 17:26] LABS: Bilirubin Negative (Negative); Blood, Urine Small (Negative); Glucose, Urine (Dipstick) Negative (Negative); Ketone, Urine Negative (Negative); Leukocyte Negative (Negative); Nitrite Positive (Negative); Protein, Urine (Dipstick) Trace mg/dL (Neg-Trace); Specific Gravity, Urine 1.025 (1.005-1.030); Urobilinogen 0.2 mg/dL (Less than 2)
[2021-01-10 17:34] LABS: Bacteria/HPF None Seen HPF (None Seen); Clarity Cloudy (Clear); RBC/HPF 0-3 HPF (0-3); WBC/HPF None Seen HPF (0-3)
[2021-01-10 17:35] LABS: Urine Culture Reflex No No
[2021-01-10] MEDS: Enoxaparin Sodium 40 MG/0.4 ML SYRINGE SC SCH (20:59)
[2021-01-11 05:50] LABS: #Eosinphils 0.5 thou/uL (0.0-0.7); #Lymphocytes 1.7 thou/uL (1.20-3.40); #Monocytes 0.9 thou/uL (0.11-0.59); #Neutrophils 7.5 thou/uL (1.40-6.50); %Basophils 0.4 % (0.0-1.0); %Eosinophils 4.3 % (0.0-10.0); %Lymphocytes 16.2 % (21.0-51.0); %Monocytes 8.3 % (0.0-10.0); %Neutrophils 70.9 % (42.0-75.0); Hemoglobin 11.9 g/dL (12.0-16.0); Mean Corpuscular Hemoglobin 33.4 pg (27.0-31.0); Mean Corpuscular Volume 98.1 fL (78.0-98.0); Mean Platelet Volume 6.9 fL (7.4-10.4); Platelet Count 718 thou/uL (130-400); RBC Distribution Width 12.8 % (11.5-14.5); Red Blood Cell (RBC) Count 3.57 mill/uL (4.20-5.40); White Blood Cell (WBC) Count 10.6 thou/uL (4.8-10.8)
[2021-01-11 06:17] LABS: Anion Gap 15 mmol/L (10-20); BUN (Urea Nitrogen) 7 mg/dL (7.0-18.7); Calc. Creatinine Clearance 63 mL/min (70-130); Calcium 9.5 mg/dL (7.8-10.44); Carbon Dioxide 24 mmol/L (22-29); Chloride 104 mmol/L (98-107); Glucose 97 mg/dL (70-105); Magnesium 2.1 mg/dL (1.6-2.6); Potassium 3.9 mmol/L (3.5-5.1); Sodium 139 mmol/L (136-145)
[2021-01-11] MEDS: Dextrose 5%-Lactated Ringers 1,000 ML IV SCH ×2 (06:30→14:53)
[2021-01-11] MEDS: Famotidine/PF 20 mg/2ml Vial SLOW IVP SCH (08:58)
[2021-01-11] MEDS: Polyethylene Glycol 3350 17 GM Packet PO SCH (08:58)
[2021-01-11] MEDS ORDERED: Lisinopril 20 MG TAB PO SCH (09:00)
[2021-01-11 13:45] VITALS: BP 101/67; TEMP 97.9
[2021-01-11] MEDS ORDERED: Sulfameth/Trimethoprim DS 800-160mg TAB PO SCH (21:00)
== END 2021-01-11 18:13 | disposition home or self-care (01) | DRG 389 ==
LOC: ERS 12:17 → T4-B 17:44 → IMCU/EMU 01-09 21:40 → SURG A 01-10 16:48
PROVIDERS: ADMIT Specialist; ATTEND Specialist
DX: K56.7 Ileus, unspecified (principal); K57.92 Diverticulitis of intestine, part unspecified, without perforation or abscess without bleeding; Z20.822 Contact with and (suspected) exposure to COVID-19; I10 Essential (primary) hypertension; F17.210 Nicotine dependence, cigarettes, uncomplicated; R41.82 Altered mental status, unspecified; Z90.49 Acquired absence of other specified parts of digestive tract; Z90.710 Acquired absence of both cervix and uterus; Z93.3 Colostomy status
CPT/HCPCS: 36415; 36416; 70450; 74019; 74022; 74177; 80048; 80053; 80306; 81001; 81003; 81015; 81025; 83605; 83735; 85025; 86140; 87086; 93005; 93010; 93880; 96374; 96375; 96376; J1650; J2270; J2405; J2543; J2550; J3480; J7050; J7120; Q9967; S0028; U0003; U0005

== ENCOUNTER 2021-02-24 18:21 | Emergency (ER) | payer SELFPAY | END 2021-02-24 18:43 | disposition home or self-care (01) | LOC: ERS 18:21 | DX: Z43.3 Encounter for attention to colostomy (principal); I10 Essential (primary) hypertension; E78.5 Hyperlipidemia, unspecified; F17.210 Nicotine dependence, cigarettes, uncomplicated | CPT/HCPCS: 99282 ==

== ENCOUNTER 2021-02-27 22:38 | Emergency (ER) | payer SELFPAY ==
[2021-02-27] MEDS ORDERED: Ondansetron PF 4 MG/2 ML Vial ONE (22:53)
[2021-02-27] MEDS ORDERED: Lorazepam 2 MG/ML VIAL ONE ×2 (23:12→23:28)
[2021-02-27 23:52] LABS: Acetaminophen Less than 6.0 mcg/mL (10.0-30.0); Alcohol 257 mg/dL (Less than 10); Salicylate Less than 8.0 mg/dL (15.0-30.0)
[2021-02-27 23:59] LABS: ALT (SGPT) 23 U/L (8-55); AST (SGOT) 20 U/L (5-34); Albumin 4.2 g/dL (3.5-5.0); Alkaline Phosphatase 96 U/L (40-110); Anion Gap 13 mmol/L (10-20); BUN (Urea Nitrogen) 7 mg/dL (7.0-18.7); Bilirubin, Total 0.2 mg/dL (0.2-1.2); Calc. Creatinine Clearance 0 mL/min (70-130); Calcium 9.3 mg/dL (7.8-10.44); Carbon Dioxide 22 mmol/L (22-29); Chloride 110 mmol/L (98-107); Globulin 3.9 g/dL (2.4-3.5); Glucose 108 mg/dL (70-105); Potassium 3.2 mmol/L (3.5-5.1); Protein, Total 8.1 g/dL (6.0-8.3); Sodium 142 mmol/L (136-145)
[2021-02-28 00:11] LABS: BHCG - Serum Negative (NEGATIVE); Pregs Control Background? CLEAR/WHITE (CLR/WHITE); Pregs Control Bar Appear? YES (CONTROL BAR)
[2021-02-28 00:35] LABS: Hemoglobin 13.1 g/dL (12.0-16.0); Mean Corpuscular Hemoglobin 33.7 pg (27.0-31.0); Mean Corpuscular Volume 93.7 fL (78.0-98.0); Mean Platelet Volume 6.4 fL (7.4-10.4); Platelet Count 309 thou/uL (130-400); RBC Distribution Width 12.7 % (11.5-14.5); Red Blood Cell (RBC) Count 3.88 mill/uL (4.20-5.40); White Blood Cell (WBC) Count 9.2 thou/uL (4.8-10.8)
[2021-02-28 00:36] LABS: Bacteria/HPF None Seen HPF (None Seen); Bilirubin Negative (Negative); Blood, Urine Trace (Negative); Clarity Clear (Clear); Glucose, Urine (Dipstick) Normal (Negative); Ketone, Urine Negative (Negative); Leukocyte Negative Leu/uL (Negative); Nitrite Negative (Negative); Protein, Urine (Dipstick) Negative (Neg-Trace); RBC/HPF None Seen HPF (0-3); Specific Gravity, Urine 1.006 (1.002-1.036); Squamous Epithelial None Seen HPF (0-3); Urobilinogen Normal mg/dL (Less than 2); WBC/HPF 0-3 HPF (0-3)
[2021-02-28 00:37] LABS: Pregnancy Test - Urine (BHCG) Negative (Negative); Pregu Control Background? CLEAR/WHITE (CLR/WHITE); Pregu Control Bar Appear? YES (CONTROL BAR); Specific Gravity 1.006 (1.002-1.036)
[2021-02-28 00:37] LABS: Thyroid Stimulating Hormone 0.6507 uIU/mL (0.35-4.94)
[2021-02-28 00:38] LABS: Amphetamine Not Detected (NotDetected); Barbiturates Screen Not Detected (NotDetected); Benzodiazepine Screen Not Detected (NotDetected); Cocaine Metabolite Screen Not Detected (NotDetected); Methadone Not Detected (NotDetected); Methamphetamine Not Detected (NotDetected); Opiate Screen Not Detected (NotDetected); Oxycodone Screen Not Detected (NotDetected); Phencyclidine (PCP) Not Detected (NotDetected); THC/Cannabinoid Screen Not Detected (NotDetected); Tricyclic Screen Not Detected (NotDetected)
[2021-02-28 00:45] LABS: Band 2 % (5-11); Eosinophils 3 % (0-10); Lymphocytes 54 % (21-51); MDiff Complete? YES; Monocytes 3 % (0-10); Neutrophil 38 % (42-75); RBC Morphology Normal
== END 2021-02-28 05:25 | disposition home or self-care (01) ==
LOC: ERS 22:38
DX: F10.129 Alcohol abuse with intoxication, unspecified (principal); Y90.2 Blood alcohol level of 40-59 mg/100 ml; I10 Essential (primary) hypertension; E78.5 Hyperlipidemia, unspecified; F17.210 Nicotine dependence, cigarettes, uncomplicated
CPT/HCPCS: 36415; 70450; 80053; 80306; 80307; 81003; 81015; 81025; 84443; 84484; 84703; 85025; 93005; 96374; 96375; J2060; J2405

== ENCOUNTER 2021-03-18 10:56 | Emergency (ER) | payer SELFPAY ==
[2021-03-18] MEDS ORDERED: Ondansetron ODT 4 MG TAB ONE (11:07)
[2021-03-18 11:28] LABS: #Eosinphils 0.3 thou/uL (0.0-0.7); #Lymphocytes 1.9 thou/uL (1.20-3.40); #Monocytes 0.7 thou/uL (0.11-0.59); #Neutrophils 6.8 thou/uL (1.40-6.50); %Basophils 0.2 % (0.0-1.0); %Eosinophils 2.9 % (0.0-10.0); %Lymphocytes 19.6 % (21.0-51.0); %Monocytes 7.5 % (0.0-10.0); %Neutrophils 69.9 % (42.0-75.0); Hemoglobin 12.7 g/dL (12.0-16.0); Mean Corpuscular HGB CONC 35.8 g/dL (32.0-36.0); Mean Corpuscular Hemoglobin 33.2 pg (27.0-31.0); Mean Corpuscular Volume 92.8 fL (78.0-98.0); Mean Platelet Volume 6.1 fL (7.4-10.4); Platelet Count 320 thou/uL (130-400); RBC Distribution Width 12.8 % (11.5-14.5); Red Blood Cell (RBC) Count 3.82 mill/uL (4.20-5.40); White Blood Cell (WBC) Count 9.7 thou/uL (4.8-10.8)
[2021-03-18 11:49] LABS: Alcohol Less than 10 mg/dL (Less than 10); Salicylate Less than 8.0 mg/dL (15.0-30.0)
[2021-03-18 11:51] LABS: ALT (SGPT) 40 U/L (8-55); AST (SGOT) 27 U/L (5-34); Albumin 3.8 g/dL (3.5-5.0); Alkaline Phosphatase 114 U/L (40-110); Anion Gap 11 mmol/L (10-20); BUN (Urea Nitrogen) 9 mg/dL (7.0-18.7); Bilirubin, Total 0.3 mg/dL (0.2-1.2); CK (CPK) 49 U/L (29-168); Calc. Creatinine Clearance 0 mL/min (70-130); Calcium 9.2 mg/dL (7.8-10.44); Carbon Dioxide 21 mmol/L (22-29); Chloride 111 mmol/L (98-107); Globulin 3.9 g/dL (2.4-3.5); Glucose 106 mg/dL (70-105); Lipase 84 U/L (8-78); Potassium 3.1 mmol/L (3.5-5.1); Protein, Total 7.7 g/dL (6.0-8.3); Sodium 140 mmol/L (136-145)
[2021-03-18] MEDS ORDERED: Potassium Bicarbonate/Cit Ac 25 MEQ TAB ONE (12:58)
[2021-03-18 13:25] LABS: Amphetamine Not Detected (NotDetected); Barbiturates Screen Not Detected (NotDetected); Benzodiazepine Screen Not Detected (NotDetected); Cocaine Metabolite Screen Not Detected (NotDetected); Methadone Not Detected (NotDetected); Methamphetamine Not Detected (NotDetected); Opiate Screen Not Detected (NotDetected); Oxycodone Screen Not Detected (NotDetected); Phencyclidine (PCP) Not Detected (NotDetected); THC/Cannabinoid Screen Not Detected (NotDetected); Tricyclic Screen Not Detected (NotDetected)
[2021-03-18 13:31] LABS: Bacteria/HPF None Seen HPF (None Seen); Bilirubin Negative (Negative); Blood, Urine Trace (Negative); Clarity Clear (Clear); Glucose, Urine (Dipstick) Normal (Negative); Ketone, Urine Negative (Negative); Leukocyte Negative Leu/uL (Negative); Nitrite Negative (Negative); Protein, Urine (Dipstick) 20 mg/dL (Neg-Trace); RBC/HPF None Seen HPF (0-3); Squamous Epithelial None Seen HPF (0-3); Urobilinogen Normal mg/dL (Less than 2); WBC/HPF None Seen HPF (0-3); pH, Urine 6.5 (5.0-9.0)
[2021-03-18 13:32] LABS: Specific Gravity, Urine 1.047 (1.002-1.036)
[2021-03-18 23:44] LABS: SARS-CoV-2 PCR by NAA Not Detected (NotDetected)
== END 2021-03-18 13:39 | disposition home or self-care (01) ==
LOC: ERS 10:56
DX: B34.9 Viral infection, unspecified (principal); E86.0 Dehydration; E87.6 Hypokalemia; E78.5 Hyperlipidemia, unspecified; I10 Essential (primary) hypertension; F17.210 Nicotine dependence, cigarettes, uncomplicated; Z20.822 Contact with and (suspected) exposure to COVID-19
CPT/HCPCS: 36415; 71045; 71275; 80053; 80306; 80307; 81003; 81015; 82550; 83690; 83880; 84484; 85025; 85379; 93005; Q0162; Q9967; U0003; U0005

== ENCOUNTER 2021-11-06 16:48 | Emergency (ER) | payer SELFPAY ==
[2021-11-06 17:29] LABS: #Eosinphils 0.3 thou/uL (0.0-0.7); #Monocytes 0.6 thou/uL (0.11-0.59); #Neutrophils 4.6 thou/uL (1.40-6.50); %Basophils 0.5 % (0.0-1.0); %Eosinophils 4.4 % (0.0-10.0); %Lymphocytes 26.9 % (21.0-51.0); %Monocytes 7.5 % (0.0-10.0); %Neutrophils 60.7 % (42.0-75.0); Hemoglobin 13.7 g/dL (12.0-16.0); Mean Corpuscular HGB CONC 35.3 g/dL (32.0-36.0); Mean Corpuscular Hemoglobin 33.9 pg (27.0-31.0); Mean Platelet Volume 6.7 fL (7.4-10.4); Platelet Count 287 thou/uL (130-400); RBC Distribution Width 12.1 % (11.5-14.5); Red Blood Cell (RBC) Count 4.03 mill/uL (4.20-5.40); White Blood Cell (WBC) Count 7.5 thou/uL (4.8-10.8)
[2021-11-06 17:48] LABS: ALT (SGPT) 50 U/L (8-55); AST (SGOT) 23 U/L (5-34); Albumin 3.9 g/dL (3.5-5.0); Alkaline Phosphatase 98 U/L (40-110); Anion Gap 14 mmol/L (10-20); BUN (Urea Nitrogen) 18 mg/dL (7.0-18.7); Bilirubin, Total 0.4 mg/dL (0.2-1.2); Calc. Creatinine Clearance 0 mL/min (70-130); Calcium 9.1 mg/dL (7.8-10.44); Carbon Dioxide 24 mmol/L (22-29); Chloride 107 mmol/L (98-107); Estimated GFR 52; Globulin 3.3 g/dL (2.4-3.5); Glucose 94 mg/dL (70-105); Potassium 4.1 mmol/L (3.5-5.1); Protein, Total 7.2 g/dL (6.0-8.3); Sodium 141 mmol/L (136-145)
[2021-11-06 19:59] LABS: Bacteria/HPF Rare-Few HPF (None Seen); Bilirubin Negative (Negative); Blood, Urine 1+ (Negative); Clarity Clear (Clear); Glucose, Urine (Dipstick) Normal (Negative); Ketone, Urine Negative (Negative); Leukocyte Negative Leu/uL (Negative); Nitrite Negative (Negative); Protein, Urine (Dipstick) 10 mg/dL (Neg-Trace); RBC/HPF 0-3 HPF (0-3); Specific Gravity, Urine 1.027 (1.002-1.036); Urobilinogen Normal mg/dL (Less than 2); WBC/HPF 0-3 HPF (0-3); pH, Urine 6.5 (5.0-9.0)
[2021-11-06 20:00] LABS: Pregnancy Test - Urine (BHCG) Negative (Negative); Pregu Control Background? CLEAR/WHITE (CLR/WHITE); Pregu Control Bar Appear? YES (CONTROL BAR); Specific Gravity 1.027 (1.002-1.036)
[2021-11-06] MEDS ORDERED: Morphine 4 MG/ML VIAL ONE (21:24)
[2021-11-06] MEDS ORDERED: Ondansetron PF 4 MG/2 ML Vial ONE (21:24)
== END 2021-11-06 23:22 | disposition home or self-care (01) ==
LOC: ERS 16:48
DX: R10.13 Epigastric pain (principal); I10 Essential (primary) hypertension; E78.5 Hyperlipidemia, unspecified
CPT/HCPCS: 36415; 74177; 80053; 81003; 81015; 81025; 83690; 85025; 96361; 96374; 96375; J2270; J2405; Q9967

== ENCOUNTER 2022-04-08 14:02 | Emergency (ER) | payer OTHER, SELFPAY ==
[2022-04-08] MEDS ORDERED: Acetaminophen 500 MG TAB ONE (14:15)
== END 2022-04-08 14:38 | disposition home or self-care (01) ==
LOC: ERS 14:02
DX: A49.1 Streptococcal infection, unspecified site (principal); E78.5 Hyperlipidemia, unspecified; I10 Essential (primary) hypertension; Z79.899 Other long term (current) drug therapy
CPT/HCPCS: 99282